=== PATIENT | female | born 1985 | race American Indian/Alaskan Native ===

== ENCOUNTER 2017-11-10 17:58 | Emergency (ER) | payer SELFPAY ==
[2017-11-10 20:42] VITALS: BP 152/94
--- NOTE | 2017-11-10 21:13 | Emergency Department Report ---
ED General Adult HPI - General Chief complaint: Medical Clearance Stated complaint: NECK PAIN Time Seen by Provider: 11/10/17 21:06 Source: patient Mode of arrival: Ambulatory Limitations: No Limitations - History of Present Illness Initial comments: Patient is a 32-year-old AA female who presents status post body piercing fell out yesterday intact from and that studies have wanted to keloid Samantha incision no bleeding no swelling no erythema wound appears is healing old female no shortness of breath no pain no palpable foreign body patient declines x-rays as the whole thing came out I have it. Onset/Timin -: days(s) Radiation: neck Severity scale (0 -10): 1 Quality: other (no pain ) Improves with: none Worsens with: none Associated Symptoms: denies other symptoms Treatments Prior to Arrival: none - Related Data Previous Rx's Medication Instructions Recorded Last Taken Type Neomycn/Bacitrc/Polymyx/Pramox 1 applicatio TP BID #1 11/10/17 Unknown Rx [Neosporin-Pain Itch Scar Oint] Allergies Allergy/AdvReac Type Severity Reaction Status Date / Time No Known Allergies Allergy Unverified 11/10/17 18:17 ED Review of Systems ROS: Stated complaint: NECK PAIN Other details as noted in HPI Constitutional: denies: chills, fever Eyes: denies: eye pain, eye discharge, vision change ENT: denies: ear pain, throat pain Respiratory: denies: cough, shortness of breath, wheezing Cardiovascular: denies: chest pain, palpitations Endocrine: no symptoms reported Gastrointestinal: denies: abdominal pain, nausea, diarrhea Genitourinary: denies: urgency, dysuria, discharge Musculoskeletal: denies: back pain, joint swelling, arthralgia Skin: lesions (neck piercing wound no pain no erythema no swelling ) Neurological: denies: headache, weakness, paresthesias Psychiatric: denies: anxiety, depression Hematological/Lymphatic: denies: easy bleeding, easy bruising ED Past Medical Hx - Past Medical History Previous Medical History?: No - Social History Smoking Status: Current Every Day Smoker Substance Use Type: Alcohol - Medications Home Medications: Home Medications Medication Instructions Recorded Confirmed Last Taken Type Neomycn/Bacitrc/Polymyx/Pramox 1 applicatio TP BID #1 11/10/17 Unknown Rx [Neosporin-Pain Itch Scar Oint] ED Physical Exam - General Limitations: No Limitations General appearance: alert, in no apparent distress - Head Head exam: Present: atraumatic, normocephalic - Eye Eye exam: Present: normal appearance - ENT ENT exam: Present: mucous membranes moist - Neck Neck exam: Present: normal inspection - Respiratory Respiratory exam: Present: normal lung sounds bilaterally. Absent: respiratory distress - Cardiovascular Cardiovascular Exam: Present: regular rate, normal rhythm. Absent: systolic murmur, diastolic murmur, rubs, gallop - GI/Abdominal GI/Abdominal exam: Present: soft, normal bowel sounds - Rectal Rectal exam: Present: deferred - Extremities Exam Extremities exam: Present: normal inspection - Back Exam Back exam: Present: normal inspection - Neurological Exam Neurological exam: Present: alert, oriented X3 - Psychiatric Psychiatric exam: Present: normal affect, normal mood - Skin Skin exam: Present: other (neck wound less than 1 cm ) ED Course Vital Signs 11/10/17 11/10/17 11/10/17 18:14 20:33 20:41 Temperature 97.9 F 98.1 F Pulse Rate 98 H 95 H Respiratory 17 16 Rate Blood Pressure 156/96 173/98 Blood Pressure 152/94 [Right] O2 Sat by Pulse 100 98 Oximetry ED Medical Decision Making - Medical Decision Making There is mild if any dorsi irritation no symptoms of infection no pain no swelling no erythema no palpable foreign body patient refuses x-ray for confirmation that she has entire neck going in her possession and back there is no drainage no bleeding no fever no erythema patient presents as she want to prevent keloiding, no hx of kelioids plan patient will apply Neosporin twice a day follow with PCP in 2-3 days Critical care attestation.: If time is entered above; I have spent that time in minutes in the direct care of this critically ill patient, excluding procedure time. ED Disposition Clinical Impression: Puncture wound of neck Qualifiers: Encounter type: initial encounter Qualified Code(s): S11.93XA - Puncture wound without foreign body of unspecified part of neck, initial encounter Disposition: TO HOME OR SELFCARE Is pt being admited?: No Does the pt Need Aspirin: No Condition: Good Instructions: Puncture Wound (ED) Prescriptions: Neomycn/Bacitrc/Polymyx/Pramox [Neosporin-Pain Itch Scar Oint] 1 applicatio TP BID #1 Forms: Work/School Release Form(ED) Time of Disposition: 21:20
== END 2017-11-10 21:27 | disposition home or self-care (01) ==
LOC: ED 17:58
DX: S11.93XA Puncture wound without foreign body of unspecified part of neck, initial encounter (principal); F17.200 Nicotine dependence, unspecified, uncomplicated; W26.8XXA Contact with other sharp object(s), not elsewhere classified, initial encounter; Y93.89 Activity, other specified; Y92.89 Other specified places as the place of occurrence of the external cause; Y99.8 Other external cause status
CPT/HCPCS: 99282